=== PATIENT | male | born 1935 | race Caucasian/White ===

== ENCOUNTER 2024-04-10 04:09 | Day surgery (SDC) | payer OTHER, MEDICARE ==
[2024-04-08 09:12] VITALS: BMI 22.4
[2024-04-10] MEDS ORDERED: TRIAMCINOLONE ACET 40MG/1ML VIAL ONE (07:16)
[2024-04-10] MEDS ORDERED: ACETAMINOPHEN 500 MG TABLET (FP) PO PRN (09:22)
[2024-04-10 10:27] VITALS: RESP 18
[2024-04-10 12:12] VITALS: BP 135/60; PULSE 51; TEMP 97.1
== END 2024-04-10 12:40 | disposition home or self-care (01) ==
LOC: JASU-SURG 04:09
PROVIDERS: ATTEND Pain Medicine Pain Medicine
PROC: 3E0R3BZ Introduction of Anesthetic Agent into Spinal Canal, Percutaneous Approach (ICD-10-PCS; 2024-04-10)
PROC: 3E0R33Z Introduction of Anti-inflammatory into Spinal Canal, Percutaneous Approach (ICD-10-PCS; principal; 2024-04-10 11:30)
DX: M48.061 Spinal stenosis, lumbar region without neurogenic claudication (principal); M54.16 Radiculopathy, lumbar region
CPT/HCPCS: 76000-TC-FY

== ENCOUNTER 2024-06-12 07:03 | Day surgery (SDC) | payer OTHER, MEDICARE ==
[2024-06-10 11:55] VITALS: BMI 22.4
[2024-06-12] MEDS: LIDOCAINE 1% P/F 10 MG/ML VIAL INF ONE
[2024-06-12] MEDS: LIDOCAINE HCL 1% PRESERVATIVE FREE - 30ML VIAL IJ ONE ×2 (09:03)
[2024-06-12] MEDS ORDERED: ACETAMINOPHEN 500 MG TABLET (FP) PO PRN (09:24)
[2024-06-12 09:32] VITALS: RESP 20
[2024-06-12 10:45] VITALS: BP 115/63; PULSE 50; TEMP 97.7
== END 2024-06-12 11:00 | disposition home or self-care (01) ==
LOC: JASU-SURG 07:03
PROVIDERS: ATTEND Pain Medicine Pain Medicine
PROC: 01HY3MZ Insertion of Neurostimulator Lead into Peripheral Nerve, Percutaneous Approach (ICD-10-PCS; principal; 2024-06-12 09:00)
DX: G89.4 Chronic pain syndrome (principal); M54.50 Low back pain, unspecified
CPT/HCPCS: 64555; C1778; 76000-TC-FY

== ENCOUNTER 2024-07-03 06:22 | Day surgery (SDC) | payer OTHER, MEDICARE ==
[2024-07-01 13:23] VITALS: BMI 22.4
[2024-07-03] MEDS ORDERED: LIDOCAINE HCL/PF 1% SDV 5ML VIAL ONE (07:34)
[2024-07-03] MEDS ORDERED: BUPIVACAINE HCL/PF 0.5% (5MG/ML) 10 ML VIAL ONE (07:34)
[2024-07-03] MEDS ORDERED: TRIAMCINOLONE ACET 40MG/1ML VIAL ONE (07:34)
[2024-07-03] MEDS: LIDOCAINE HCL 1% PRESERVATIVE FREE - 30ML VIAL IJ ONE (08:16)
[2024-07-03 08:48] VITALS: RESP 18
[2024-07-03 09:33] VITALS: BP 141/70; PULSE 54; TEMP 97.1
[2024-07-03] MEDS ORDERED: ACETAMINOPHEN 500 MG TABLET (FP) PO PRN (12:17)
== END 2024-07-03 09:20 | disposition home or self-care (01) ==
LOC: JASU-SURG 06:22
PROVIDERS: ATTEND Pain Medicine Pain Medicine
PROC: 01HY3MZ Insertion of Neurostimulator Lead into Peripheral Nerve, Percutaneous Approach (ICD-10-PCS; principal; 2024-07-03 08:00)
DX: G89.4 Chronic pain syndrome (principal); M54.50 Low back pain, unspecified
CPT/HCPCS: 76000-TC-FY; C1778